=== PATIENT | female | born 1965 | race Caucasian/White ===

== ENCOUNTER → 2019-09-12 | Day surgery (SDC) | payer BC ==
[2019-05-23 22:05] VITALS: BP 159/86
== END ==
LOC: MSO 08:13
DX: Z12.11 Encounter for screening for malignant neoplasm of colon (principal); K57.30 Diverticulosis of large intestine without perforation or abscess without bleeding; Z90.710 Acquired absence of both cervix and uterus; E03.9 Hypothyroidism, unspecified; R56.9 Unspecified convulsions
CPT/HCPCS: 00812; J2704; J7120

== ENCOUNTER → 2019-10-13 | Outpatient (CLI) | payer BC ==
[2019-05-23 22:05] VITALS: BP 159/86
== END ==
LOC: MAMMO 09-08 10:00
DX: Z12.31 Encounter for screening mammogram for malignant neoplasm of breast (principal); N63.21 Unspecified lump in the left breast, upper outer quadrant; N63.11 Unspecified lump in the right breast, upper outer quadrant

== ENCOUNTER → 2019-10-24 | Outpatient (CLI) | payer BC ==
[2019-05-23 22:05] VITALS: BP 159/86
== END ==
LOC: RAD 07:19
DX: N63.31 Unspecified lump in axillary tail of the right breast (principal); N63.32 Unspecified lump in axillary tail of the left breast

== ENCOUNTER → 2024-01-28 | Outpatient (CLI) | payer OTHER | LOC: RAD 10:10 | DX: Z12.31 Encounter for screening mammogram for malignant neoplasm of breast (principal) ==